=== PATIENT | female | born 1945 | race Caucasian/White ===

== ENCOUNTER 2017-07-12 13:43 | Outpatient (CLI) | payer MEDICARE | END 2017-07-12 13:44 | disposition home or self-care (01) | LOC: BICMAMMO 13:43 | PROVIDERS: ATTEND Internal Medicine | DX: N64.4 Mastodynia (principal) | CPT/HCPCS: 76642; 77066; G0279 ==

== ENCOUNTER → 2017-07-26 | Day surgery (SDC) | payer MEDICARE | LOC: BICULT 11:55 | PROVIDERS: ATTEND Internal Medicine | PROC: 0HBT3ZX Excision of Right Breast, Percutaneous Approach, Diagnostic (ICD-10-PCS; principal; 2017-07-26) | DX: C50.511 Malignant neoplasm of lower-outer quadrant of right female breast (principal); Z79.899 Other long term (current) drug therapy | CPT/HCPCS: 19100; 76942; 88305; 88341; 88342; 88360 ==

== ENCOUNTER 2017-08-24 10:07 | Outpatient (CLI) | payer MEDICARE ==
[2017-08-24 11:21] LABS: #Basophils 0.1 thou/uL (0.0-0.2); #Eosinphils 0.3 thou/uL (0.0-0.7); #Lymphocytes 1.8 thou/uL (1.20-3.40); #Monocytes 0.5 thou/uL (0.11-0.59); #Neutrophils 3.3 thou/uL (1.40-6.50); %Basophils 0.9 % (0.0-1.0); %Eosinophils 5.6 % (0.0-10.0); %Lymphocytes 30.1 % (21.0-51.0); %Monocytes 8.1 % (0.0-10.0); %Neutrophils 55.4 % (42.0-75.0); Hemoglobin 15.1 g/dL (12.0-16.0); Mean Corpuscular HGB CONC 33.5 g/dL (32.0-36.0); Mean Corpuscular Hemoglobin 31.7 pg (27.0-31.0); Mean Corpuscular Volume 94.5 fl (81.0-99.0); Mean Platelet Volume 8.6 fL (7.4-10.4); Platelet Count 143 thou/uL (130-400); RBC Distribution Width 10.8 % (11.5-14.5); Red Blood Cell (RBC) Count 4.76 mill/uL (4.20-5.40)
[2017-08-24 11:40] LABS: Anion Gap 11 mmol/L (10-20); BUN (Urea Nitrogen) 11 mg/dL (9.8-20.1); Calc. Creatinine Clearance 0 mL/min (70-130); Calcium 10.1 mg/dL (7.8-10.44); Carbon Dioxide 29 mmol/L (23-31); Chloride 104 mmol/L (98-107); Estimated GFR-MDRD 80; Glucose 110 mg/dL (80-115); Potassium 3.7 mmol/L (3.5-5.1); Sodium 140 mmol/L (136-145)
--- NOTE | 2017-08-28 08:47 | EKG ---
Test Reason : Blood Pressure : / mmHG Vent. Rate : 058 BPM Atrial Rate : 058 BPM P-R Int : 142 ms QRS Dur : 074 ms QT Int : 418 ms P-R-T Axes : 074 068 053 degrees QTc Int : 410 ms Poor data quality, interpretation may be adversely affected Sinus bradycardia Possible Anterior infarct , age undetermined Abnormal ECG When compared with ECG of 30-DEC-2015 12:21, No significant change was found Confirmed by EDGARDO RICK MD ([id number]) on 08/28/2017 8:46:29 AM Referred By: CAROLINA Confirmed By:EDGARDO RICK MD
== END 2017-08-24 10:08 | disposition home or self-care (01) ==
LOC: LABBT 10:07
PROVIDERS: ATTEND Surgery
DX: Z01.818 Encounter for other preprocedural examination (principal); C50.911 Malignant neoplasm of unspecified site of right female breast
CPT/HCPCS: 80048; 85025; 93005; 93010

== ENCOUNTER 2017-08-26 06:46 | Observation (INO) | payer MEDICARE ==
[2017-08-24 10:27] VITALS: BMI 31.1
[2017-08-26] MEDS ORDERED: CEFAZOLIN/Water 2 GM/20 ML SYRINGE ONE (12:09)
[2017-08-26] MEDS ORDERED: Fentanyl 250 MCG/5 ML VIAL ONE (12:48)
[2017-08-26] MEDS ORDERED: Isosulfan Blue 50 MG/5 ML VIAL ONE (13:20)
--- NOTE | 2017-08-26 13:25 | NM ---
LYMPHOSCINTIGRAPHY RIGHT BREAST: HISTORY: Right breast cancer. FINDINGS: After explaining the procedure and answering all questions, the skin at the periareolar aspect of the right breast was cleansed with alcohol. A total volume of 1 mL containing 0.4 millicuries of techne tium 99m filtered sulfur colloid was carefully injected into the skin at the 12 o'clock, 3 o'clock, 6 o'clock, and 9 o'clock positions of the right breast. Imaging was performed immediately and up to 3 hours. Uptake at the right axilla was not reliably demonstrated. IMPRESSION: Lymphoscintigraphy right breast without reliable demonstration of a sentinel lymph node. The patient was sent to surgery. Please note that sometimes the sentinel lymph node is still detectable with th e radiotracer just by visualization on imaging. POS: YANCY
--- NOTE | 2017-08-26 16:47 | PDOC.OP ---
Operative Note - Operative Note Operative Note: DATE OF PROCEDURE: 08/26/2017 SURGEON: Jimmie Christian M.D. PREOPERATIVE DIAGNOSES: Right lobular breast cancer POSTOPERATIVE DIAGNOSIS: Right lobular breast cancer HISTORY: Patient with invasive lobular cancer of the right breast. She has chosen bilateral mastectomy for personal reasons. Coward lymph node biopsy was recommended for treatment guidance, but lymphoscintigraphy did not show any definite uptake in the axilla. The recommendation was made to proceed with attempt at sentinel lymph node biopsy, with axillary lymph node dissection if sentinel lymph node could not be identified. The patient was in agreement with this plan. PROCEDURE IN DETAIL: After informed consent was obtained and lymphoscintigraphy performed and reviewed, the patient was taken to the operating room she was placed in supine position and general anesthesia was administered. Lymphazurin was injected behind the areola of the right side and the breast massaged for 5 minutes. The patient was then prepped and draped in the standard sterile fashion and left mastectomy performed. An elliptical incision including the nipple areolar complex was created and flaps raised superiorly to the level of the clavicle, inferiorly to the level of the rectus sheath and medially to the level of the sternum. The breast tissue was then dissected free of the pectoralis in a medial to lateral fashion and marked for orientation with a long lateral and short superior suture. The wound was irrigated and hemostasis obtained using Bovie electrocautery. A RUDY drain was placed laterally and secured to the skin. The subcutaneous tissues and deep dermis were reapproximated with interrupted [id number] Vicryl sutures and the skin was closed with skin shirley. Attention was then turned to the right sentinel lymph node biopsy. Local anesthesia was infused the skin and subcutaneous tissues over the lower edge of the hairbearing skin of the axilla. An incision was made and dissection carried down to the true axilla. A small lymph node with increased activity was identified dissected free and sent as sentinel lymph node #1, with a count of 40. A second blue lymph node with increased activity was identified dissected free and sent as sentinel lymph node #2 with a count of 12. No other areas of significantly increased activity were identified and no other blue lymph nodes or abnormal lymph nodes were noted. The wound was irrigated and examined for hemostasis. The subcutaneous tissues were closed with 3-0 Monocryl sutures and the skin was closed with skin shirley. Attention was then turned to the right mastectomy which was performed in identical manner to the left mastectomy. During the right mastectomy, pathology results returned with micrometastasis in the second lymph node only. Completion axillary dissection was not indicated, but the patient will be presented in Cancer Conference and Oncotype ordered. The right breast was also marked with a long lateral and short superior suture. The skin incisions were dressed with Xeroform and gauze and tegaderm, and pressure dressings were placed and secured with Sebastián wrap. The patient was extubated and taken to the recovery room in good condition. Estimated blood loss was 150 mL.. There were no complications. SPECIMENS: Bilateral breasts and 2 sentinel lymph nodes
[2017-08-26] MEDS ORDERED: Fentanyl 100 MCG/2 ML VIAL ONE ×2 (17:02→17:36)
[2017-08-26] MEDS ORDERED: PROPOFOL 200 MG/20 ML VIAL ONE (17:20)
[2017-08-26] MEDS ORDERED: ePHEDrine/0.9% NaCl/PF SYRINGE 50 mg/10 ml ONE (17:20)
[2017-08-26] MEDS ORDERED: Lidocaine 1% PF 5 ML VIAL ONE (17:20)
[2017-08-26] MEDS ORDERED: Dexamethasone 20 MG/5 ML VIAL ONE ×2 (17:20)
[2017-08-26] MEDS ORDERED: Promethazine HCl 25 MG/ML VIAL ONE (17:36)
[2017-08-26] MEDS ORDERED: traMADol HCl 50 MG TAB PO PRN ×2 (21:18)
[2017-08-26] MEDS ORDERED: Promethazine 25 MG TAB PO PRN ×2 (21:19)
[2017-08-26] MEDS ORDERED: Morphine 4 MG/ML VIAL SLOW IVP PRN ×2 (21:22)
[2017-08-26] MEDS ORDERED: Sodium Chloride 0.9% 1,000 ML IV SCH (21:30)
[2017-08-27 07:24] VITALS: BP 119/57; TEMP 97.5
== END 2017-08-27 10:55 | disposition home or self-care (01) ==
LOC: SDC 06:46 → ONC 17:42
PROVIDERS: ADMIT Surgery; ATTEND Surgery
PROC: 0HTV0ZZ Resection of Bilateral Breast, Open Approach (ICD-10-PCS; principal; 2017-08-26)
DX: C50.511 Malignant neoplasm of lower-outer quadrant of right female breast (principal); C77.3 Secondary and unspecified malignant neoplasm of axilla and upper limb lymph nodes; I10 Essential (primary) hypertension; J45.909 Unspecified asthma, uncomplicated; K21.9 Gastro-esophageal reflux disease without esophagitis; E78.00 Pure hypercholesterolemia, unspecified; Z17.0 Estrogen receptor positive status [ER+]; Z79.82 Long term (current) use of aspirin; Z79.899 Other long term (current) drug therapy; Z88.5 Allergy status to narcotic agent; Z90.710 Acquired absence of both cervix and uterus; Z90.722 Acquired absence of ovaries, bilateral; Z90.79 Acquired absence of other genital organ(s); Z98.890 Other specified postprocedural states; Z80.9 Family history of malignant neoplasm, unspecified
CPT/HCPCS: 19307; 78195; 88307; 88331; 88334; 88342; 96374; A9541; G0378; Q9968 ×2; J0131; J1100; J2001; J2550; J2704; J3010

== ENCOUNTER 2021-02-09 23:37 | Emergency (ER) | payer MEDICARE ==
[2021-02-10] MEDS ORDERED: Fluorescein Opthalmic Strip ONE (00:28)
[2021-02-10] MEDS ORDERED: Proparacaine 0.5% Opth 15 ML BOT ONE (00:29)
== END 2021-02-10 02:32 | disposition home or self-care (01) ==
LOC: ERS 23:37
DX: T65.891A Toxic effect of other specified substances, accidental (unintentional), initial encounter (principal); H10.211 Acute toxic conjunctivitis, right eye; I10 Essential (primary) hypertension; E78.5 Hyperlipidemia, unspecified
CPT/HCPCS: 99283

== ENCOUNTER 2023-11-10 10:56 | Inpatient (IN) | payer MEDICARE ==
[2023-11-10] MEDS ORDERED: dilTIAZem 25 MG/5 ML VIAL ONE ×2 (11:38→13:50)
[2023-11-10 11:45] LABS: #Basophils 0.08 10x3/uL (0.0-0.2); %Basophils 1.3 % (0.0-1.0); %Lymphocytes 22.4 % (21.0-51.0); %Monocytes 8.6 % (0.0-10.0); %Neutrophils 56.5 % (42.0-75.0); Hematocrit 47.1 % (36.0-47.0); Hemoglobin 16.2 g/dL (12.0-16.0); Mean Corpuscular HGB CONC 34.4 g/dL (32.0-36.0); Mean Corpuscular Hemoglobin 32.1 pg (27.0-31.0); Mean Corpuscular Volume 93.3 fL (78.0-98.0); Mean Platelet Volume 10.7 fL (7.4-10.4); Platelet Count 147 10x3/uL (130-400); RBC Distribution Width 13.2 % (11.5-14.5); Red Blood Cell (RBC) Count 5.05 mill/uL (4.20-5.40)
[2023-11-10 11:59] LABS: ALT (SGPT) 22 U/L (8-55); AST (SGOT) 28 U/L (5-34); Alkaline Phosphatase 55 U/L (40-110); Anion Gap 15 mmol/L (10-20); BUN (Urea Nitrogen) 17 mg/dL (9.8-20.1); Bilirubin, Total 1.3 mg/dL (0.2-1.2); Calc. Creatinine Clearance 0 mL/min (70-130); Calcium 9.9 mg/dL (7.8-10.44); Carbon Dioxide 23 mmol/L (23-31); Chloride 110 mmol/L (98-107); Estimated GFR 63; Globulin 2.9 g/dL (2.4-3.5); Glucose 117 mg/dL (83-110); Potassium 3.6 mmol/L (3.5-5.1); Protein, Total 6.9 g/dL (5.8-8.1); Sodium 144 mmol/L (136-145)
[2023-11-10 12:39] LABS: PTT 24.3 sec (22.9-36.1); Prothrombin Time 13.2 sec (12.0-14.7)
[2023-11-10] MEDS ORDERED: dilTIAZem 125 MG/25 ML SDV ONE (13:54)
[2023-11-10 14:48] LABS: Hematocrit 45.8 % (36.0-47.0); Hemoglobin 15.6 g/dL (12.0-16.0); Platelet Count 147 10x3/uL (130-400)
[2023-11-10 14:57] LABS: Magnesium 1.7 mg/dL (1.6-2.6)
[2023-11-10 17:42] LABS: Troponin I Less than 0.010 ng/mL (< 0.028)
[2023-11-10] MEDS: Potassium Bicarbonate/Cit Ac 20 MEQ TAB PO SCH (18:08)
[2023-11-10 18:09] VITALS: BMI 28.2
[2023-11-10] MEDS: Communication Order-Pharmacy FS ONE (18:23)
[2023-11-10] MEDS: Magnesium 2 GM/50 ML(in water) 2 GM in Premix 1 BAG IVPB SCH (18:51)
[2023-11-10] MEDS: Acetaminophen 325 MG TAB PO SCH (19:05)
[2023-11-10] MEDS: Mometasone Furoate 120 PUFF 220 MCG INH SCH (19:24)
[2023-11-10 20:35] LABS: Troponin I Less than 0.010 ng/mL (< 0.028)
[2023-11-10] MEDS ORDERED: Melatonin 3 MG TAB PO PRN (21:46)
[2023-11-10] MEDS: Amlodipine 10 MG TAB PO SCH (21:49)
[2023-11-10] MEDS: Enoxaparin 80 MG (0.8 mL) SYRINGE SC SCH (21:50)
[2023-11-10] MEDS: Famotidine 20 MG TAB PO SCH (21:51)
[2023-11-10] MEDS: Simvastatin 10 MG TAB PO SCH (21:51)
[2023-11-10] MEDS: Melatonin 3 MG TAB PO SCH (22:10)
[2023-11-10] MEDS: dilTIAZem 125 MG in Sodium Chloride 0.9% 100 ML IVPB SCH (22:44)
[2023-11-10] MEDS: Mometasone Furoate 30 PUFF 220 MCG INH SCH (23:03)
[2023-11-11 04:42] LABS: #Basophils 0.08 10x3/uL (0.0-0.2); %Basophils 1.2 % (0.0-1.0); %Eosinophils 10.3 % (0.0-10.0); %Lymphocytes 26.4 % (21.0-51.0); %Monocytes 8.8 % (0.0-10.0); %Neutrophils 53.2 % (42.0-75.0); Hematocrit 43.9 % (36.0-47.0); Hemoglobin 14.8 g/dL (12.0-16.0); Mean Corpuscular HGB CONC 33.7 g/dL (32.0-36.0); Mean Corpuscular Hemoglobin 31.4 pg (27.0-31.0); Mean Corpuscular Volume 93.2 fL (78.0-98.0); Mean Platelet Volume 11.1 fL (7.4-10.4); Platelet Count 144 10x3/uL (130-400); RBC Distribution Width 13.4 % (11.5-14.5); Red Blood Cell (RBC) Count 4.71 mill/uL (4.20-5.40)
[2023-11-11 04:57] LABS: Anion Gap 14 mmol/L (10-20); BUN (Urea Nitrogen) 13 mg/dL (9.8-20.1); Calc. Creatinine Clearance 81 mL/min (70-130); Calcium 9.1 mg/dL (7.8-10.44); Carbon Dioxide 23 mmol/L (23-31); Chloride 110 mmol/L (98-107); Estimated GFR 84; Glucose 95 mg/dL (83-110); Potassium 3.5 mmol/L (3.5-5.1); Sodium 143 mmol/L (136-145)
[2023-11-11] MEDS: Levothyroxine Sodium 100 MCG TAB PO SCH (06:13)
[2023-11-11] MEDS ORDERED: PROPOFOL 200 MG/20 ML VIAL ONE (08:47)
[2023-11-11] MEDS ORDERED: Lidocaine 1% PF 5 ML VIAL ONE (08:47)
[2023-11-11] MEDS: Aspirin 81 mg Enteric Coated Tablet PO SCH (10:08)
[2023-11-11] MEDS: Triamterene/Hydrochlorothiazide 37.5 mg/25 mg Tablet PO SCH (10:08)
[2023-11-11] MEDS: Apixaban 5 MG TAB PO SCH ×2 (10:57→22:44)
[2023-11-11] MEDS: Flecainide 50 MG TAB PO SCH (10:57)
[2023-11-12 04:54] LABS: #Basophils 0.08 10x3/uL (0.0-0.2); %Basophils 1.1 % (0.0-1.0); %Eosinophils 10.9 % (0.0-10.0); %Lymphocytes 30.4 % (21.0-51.0); %Monocytes 8.3 % (0.0-10.0); Hematocrit 42.9 % (36.0-47.0); Hemoglobin 14.4 g/dL (12.0-16.0); Mean Corpuscular HGB CONC 33.6 g/dL (32.0-36.0); Mean Corpuscular Hemoglobin 31.9 pg (27.0-31.0); Mean Corpuscular Volume 95.1 fL (78.0-98.0); Mean Platelet Volume 11.2 fL (7.4-10.4); Platelet Count 145 10x3/uL (130-400); RBC Distribution Width 13.2 % (11.5-14.5); Red Blood Cell (RBC) Count 4.51 mill/uL (4.20-5.40)
[2023-11-12 05:13] LABS: Anion Gap 13 mmol/L (10-20); BUN (Urea Nitrogen) 15 mg/dL (9.8-20.1); Calc. Creatinine Clearance 82 mL/min (70-130); Carbon Dioxide 26 mmol/L (23-31); Chloride 109 mmol/L (98-107); Estimated GFR 85; Glucose 98 mg/dL (83-110); Potassium 3.7 mmol/L (3.5-5.1); Sodium 144 mmol/L (136-145)
[2023-11-12] MEDS ORDERED: Albuterol 200 PUFF (6.7GM INHALER) INH PRN (05:43)
[2023-11-12] MEDS ORDERED: FLOVENT INH SCH (09:00)
[2023-11-12 10:33] LABS: Magnesium 2.2 mg/dL (1.6-2.6)
[2023-11-12] MEDS: dilTIAZem CD 120 MG CAP PO SCH (10:56)
[2023-11-12] MEDS: predniSONE 20 MG TAB PO SCH (10:56)
[2023-11-12] MEDS: Ipratropium/Albuterol 3 ML NEB NEB SCH (19:08)
[2023-11-13 05:16] LABS: #Basophils 0.03 10x3/uL (0.0-0.2); #Eosinphils Less than 0.03 10x3/uL (0.0-0.7); %Basophils 0.4 % (0.0-1.0); %Eosinophils 0.3 % (0.0-10.0); %Lymphocytes 22.1 % (21.0-51.0); %Monocytes 8.6 % (0.0-10.0); %Neutrophils 68.2 % (42.0-75.0); Hematocrit 41.7 % (36.0-47.0); Hemoglobin 14.2 g/dL (12.0-16.0); Mean Corpuscular HGB CONC 34.1 g/dL (32.0-36.0); Mean Corpuscular Hemoglobin 32.1 pg (27.0-31.0); Mean Corpuscular Volume 94.3 fL (78.0-98.0); Mean Platelet Volume 10.9 fL (7.4-10.4); Platelet Count 149 10x3/uL (130-400); RBC Distribution Width 12.9 % (11.5-14.5); Red Blood Cell (RBC) Count 4.42 mill/uL (4.20-5.40)
[2023-11-13 05:37] LABS: Anion Gap 14 mmol/L (10-20); BUN (Urea Nitrogen) 13 mg/dL (9.8-20.1); Calc. Creatinine Clearance 84 mL/min (70-130); Calcium 9.5 mg/dL (7.8-10.44); Carbon Dioxide 23 mmol/L (23-31); Chloride 109 mmol/L (98-107); Estimated GFR 88; Glucose 106 mg/dL (83-110); Potassium 3.5 mmol/L (3.5-5.1); Sodium 142 mmol/L (136-145)
[2023-11-13] MEDS: predniSONE 20 MG TAB PO SCH (09:43)
[2023-11-13 10:55] VITALS: BP 128/68; TEMP 98
== END 2023-11-13 12:20 | disposition home or self-care (01) | DRG 308 ==
LOC: ERS 10:56 → ERHOLD 13:37 → 2NO 16:33
PROVIDERS: ADMIT Hospitalist; ATTEND Family Medicine
PROC: B245ZZ4 Ultrasonography of Left Heart, Transesophageal (ICD-10-PCS; principal; 2023-11-11)
DX: I48.0 Paroxysmal atrial fibrillation (principal); J96.01 Acute respiratory failure with hypoxia; J45.901 Unspecified asthma with (acute) exacerbation; I50.30 Unspecified diastolic (congestive) heart failure; I48.92 Unspecified atrial flutter; I11.0 Hypertensive heart disease with heart failure; I07.1 Rheumatic tricuspid insufficiency; E78.5 Hyperlipidemia, unspecified; E03.9 Hypothyroidism, unspecified; Z88.5 Allergy status to narcotic agent; Z79.890 Hormone replacement therapy; Z79.899 Other long term (current) drug therapy; Z90.13 Acquired absence of bilateral breasts and nipples; Z90.89 Acquired absence of other organs; Z90.710 Acquired absence of both cervix and uterus; Z98.890 Other specified postprocedural states
CPT/HCPCS: 36415; 36416; 71045; 80048; 80053; 83735; 83880; 84443; 84484; 85025; 85610; 85730; 92960; 93005; 93306; 93312; 94640; 96374; 96376; J1650; J2704; J3475; J3490; J7512; J7620

== ENCOUNTER 2023-12-27 12:18 | Outpatient (CLI) | payer MEDICARE | END 2023-12-27 12:19 | disposition home or self-care (01) | LOC: RAD 12:18 | PROVIDERS: ATTEND Internal Medicine Critical Care Medicine | DX: R06.00 Dyspnea, unspecified (principal) | CPT/HCPCS: 71046 ==

== ENCOUNTER 2024-02-11 13:19 | Emergency (ER) | payer MEDICARE ==
[2024-02-11] MEDS ORDERED: Lidocaine 1% PF 5 ML VIAL ONE (13:56)
[2024-02-11] MEDS ORDERED: Bacitracin 1 PK ONE (14:38)
== END 2024-02-11 14:44 | disposition home or self-care (01) ==
LOC: ERS 13:19
DX: S61.412A Laceration without foreign body of left hand, initial encounter (principal); I10 Essential (primary) hypertension; W23.0XXA Caught, crushed, jammed, or pinched between moving objects, initial encounter
CPT/HCPCS: 12001; 99282